=== PATIENT | male | born 1975 | race Caucasian/White ===

== ENCOUNTER → 2016-07-03 | Outpatient (CLI) | payer MEDICAID ==
[~2016-07-03] MED LIST: ABILIFY2 MG ORAL; CLINDAMYCIN HC300 MG ORAL; IBUPROFEN600 MG ORAL; QUETIAPINE FUMA25 MG ORAL; ZYPREXA2.5 MG ORAL
[2016-07-03 15:05] LABS: CHOLESTEROL/HDL RATIO 3.9 (3.3-4.4)
[2016-07-03 15:06] LABS: HEMOGLOBIN A1C 5.1 % (< 6.0)
== END | disposition home or self-care (01) ==
LOC: LAB 14:09
DX: E78.00 Pure hypercholesterolemia, unspecified (principal); R73.9 Hyperglycemia, unspecified
CPT/HCPCS: 36415; 80061; 82947; 83036

== ENCOUNTER → 2016-10-25 | Outpatient (CLI) | payer MEDICAID, OTHER ==
[2016-10-25 13:57] LABS: HEMOGLOBIN A1C 5.3 % (< 6.0)
[2016-10-25 13:58] LABS: CHOLESTEROL/HDL RATIO 4.8 (3.3-4.4)
--- NOTE | 2016-10-25 15:19 | Diagnostic Imaging Report ---
Indication: Dyspnea Comparison: None 2 views of the chest obtained. Findings: Cardiomediastinal silhouette and pulmonary vascularity are within normal limits for age. The diaphragmatic contour is smooth and costophrenic angles are sharp. No pleural effusions are identified. The bones are unremarkable. Impression: No acute disease
== END | disposition home or self-care (01) ==
LOC: LAB 13:04
DX: E78.00 Pure hypercholesterolemia, unspecified (principal); F17.200 Nicotine dependence, unspecified, uncomplicated; R06.00 Dyspnea, unspecified
CPT/HCPCS: 36415; 71020; 80061; 82947; 83036

== ENCOUNTER 2017-07-02 11:43 | Outpatient (CLI) | payer OTHER ==
[2017-07-02 12:23] LABS: CHOLESTEROL 134 MG/DL (< 200); GLUCOSE,FASTING 129 MG/DL (70-110); HDL CHOLESTEROL 29 MG/DL (40-60); TRIGLYCERIDES 90 MG/DL (30-150)
== END 2017-07-02 13:43 | disposition home or self-care (01) ==
LOC: LAB 11:43
DX: E78.00 Pure hypercholesterolemia, unspecified (principal)
CPT/HCPCS: 36415; 80061; 82947; 83036

== ENCOUNTER 2018-01-23 13:09 | Outpatient (CLI) | payer MEDICAID, OTHER ==
[2018-01-23 14:01] LABS: CHOLESTEROL 154 MG/DL (< 200); HDL CHOLESTEROL 34 MG/DL (40-60); TRIGLYCERIDES 159 MG/DL (30-150)
== END 2018-01-23 15:09 | disposition home or self-care (01) ==
LOC: LAB 13:09
DX: F25.9 Schizoaffective disorder, unspecified (principal)
CPT/HCPCS: 36415; 80061; 82947; 83036

== ENCOUNTER 2018-09-26 11:05 | Outpatient (CLI) | payer OTHER ==
[2018-09-26 11:49] LABS: CHOLESTEROL 169 MG/DL (< 200); HDL CHOLESTEROL 32 MG/DL (40-60); TRIGLYCERIDES 130 MG/DL (30-150)
== END 2018-09-26 13:05 | disposition home or self-care (01) ==
LOC: LAB 11:05 → EDBD 11:05 → LAB 13:05
DX: R73.9 Hyperglycemia, unspecified (principal)
CPT/HCPCS: 36415; 80061; 83036

== ENCOUNTER 2019-06-05 13:26 | Outpatient (CLI) | payer MEDICAID ==
[2019-06-05 13:58] LABS: CHOLESTEROL 153 MG/DL (< 200); GLUCOSE,FASTING 136 MG/DL (70-110); HDL CHOLESTEROL 34 MG/DL (40-60); TRIGLYCERIDES 189 MG/DL (30-150)
== END 2019-06-05 15:26 | disposition home or self-care (01) ==
LOC: LAB 13:26
DX: R73.09 Other abnormal glucose (principal)
CPT/HCPCS: 36415; 80061; 82947; 83036

== ENCOUNTER → 2020-03-04 | Outpatient (CLI) | payer BC, MEDICAID ==
[2020-03-04 12:32] LABS: CHOLESTEROL 187 MG/DL (< 200); HDL CHOLESTEROL 30 MG/DL (40-60); TRIGLYCERIDES 176 MG/DL (30-150)
== END | disposition home or self-care (01) ==
LOC: LAB 11:40
DX: R73.9 Hyperglycemia, unspecified (principal)
CPT/HCPCS: 36415; 80061; 83036